=== PATIENT | female | born 1990 | race Caucasian/White ===

== ENCOUNTER 2019-04-28 21:51 | Emergency (ER) | payer OTHER ==
[2019-04-28] MEDS ORDERED: ACETAMINOPHEN 1000 MG/100 ML VIAL (NON FORMULARY) IVPB ONE (22:20)
[2019-04-28] MEDS ORDERED: SODIUM CHLORIDE 0.9% 1000 ML INFUS.BAG IV ONE (22:20)
[2019-04-28] MEDS ORDERED: ONDANSETRON 4 MG/2 ML VIAL IVPUSH ONE (22:20)
[2019-04-28] MEDS ORDERED: ACETAMINOPHEN INJECTION 100 ML IVPB ONE (22:31)
[2019-04-28] MEDS ORDERED: ONDANSETRON 4 MG/2 ML VIAL ONE (22:31)
--- NOTE | 2019-04-28 22:37 | PDOC ---
Documentation entered by Alex Wheeler SCRIBE, acting as scribe for Zainab Munroe DO. Zainab Munroe DO: This documentation has been prepared by the Liam adams Nirvannie, SCRIBE, under my direction and personally reviewed by me in its entirety. I confirm that the documentation accurately reflects all work, treatment, procedures, and medical decision making performed by me. History of Present Illness - General Stated Complaint: RECTAL BLEEDING Time Seen by Provider: 04/28/19 22:02 History Source: Patient, Unavil. due to pt. cond. - History of Present Illness Initial Comments: 04/28/19 23:11 The patient is a 28 year old female, with a significant past medical history of Stage III Ovarian Cancer (06/29, s/p radiation, currently in remission), who presents to the emergency department with 3 days of rectal bleeding. As per patient, she was constipated and noticed rectal bleeding upon straining. She notes going to her PCP for her symptoms at which time she was prescribed Metamucil. She notes today her rectal bleeding increased significantly with associated diarrhea, prompting her arrival to the ED. She denies any vaginal bleeding. She denies recent fevers, chills, headache or dizziness. She denies recent dysuria, frequency, urgency or hematuria. She denies recent chest pain or shortness of breath. Allergies: Tree nuts. Past surgical history: None reported. Social history: Nonsmoker. Denies EtOH use and recreational drug use. Primary Care Physician: Dr. Sultana LMP: 06/2017 Past History - Past Medical History Allergies/Adverse Reactions: Allergies Allergy/AdvReac Type Severity Reaction Status Date / Time tree nut Allergy Intermediate Swelling Verified 08/25/15 08:34 No Known Drug Allergies Allergy Verified 08/25/15 08:34 Home Medications: Ambulatory Orders Acetaminophen [Tylenol .Regular Strength -] 650 mg PO Q4H PRN #0 tablet Ferrous Sulfate [Feosol] 325 mg PO BID #60 tablet 08/29/15 Ibuprofen [Motrin -] 600 mg PO Q4H PRN #30 tablet 08/29/15 Vitamins - 1 tab PO DAILY #30 08/29/15 Ciprofloxacin [Cipro (Restricted To Id)] 500 mg PO BID #14 tablet 04/29/19 metroNIDAZOLE [Flagyl -] 500 mg PO TID #21 tablet 04/29/19 Asthma: No Cancer: No Cardiac Disorders: No Diabetes: No HTN: No Seizures: No Thyroid Disease: No - Psycho Social/Smoking Cessation Hx Smoking History: Never smoked Have you smoked in the past 12 months: No Hx Alcohol Use: No Drug/Substance Use Hx: No Hx Substance Use Treatment: No Review of Systems - Review of Systems Able to Perform ROS?: Yes Comments:: 04/28/19 23:11 GENERAL/CONSTITUTIONAL: No fever or chills. No weakness. HEAD, EYES, EARS, NOSE AND THROAT: No change in vision. No ear pain or discharge. No sore throat. GASTROINTESTINAL: +Rectal bleeding. +Diarrhea. No nausea or vomiting. GENITOURINARY: No dysuria, frequency, or change in urination. CARDIOVASCULAR: No chest pain or shortness of breath. RESPIRATORY: No cough, wheezing, or hemoptysis. MUSCULOSKELETAL: No joint or muscle swelling or pain. No neck or back pain. SKIN: No rash NEUROLOGIC: No headache, vertigo, loss of consciousness, or change in strength/ sensation. ENDOCRINE: No increased thirst. No abnormal weight change. HEMATOLOGIC/LYMPHATIC: No anemia, easy bleeding, or history of blood clots. ALLERGIC/IMMUNOLOGIC: No hives or skin allergy. = All Other Systems: Reviewed and Negative *Physical Exam - Physical Exam 04/28/19 23:12 Constitutional: Awake, alert, oriented. No acute distress. Head: Normocephalic. Atraumatic Eyes: PERRL. EOMI. Conjunctivae are not pale. ENT: Mucous membranes are moist and intact. Posterior pharynx without exudates or erythema. Uvula midline. Neck: Supple. Full ROM. No lymphadenopathy. Cardiovascular: Regular rate. Regular rhythm. S1, S2 regular. Distal pulses are 2+ and symmetric. Pulmonary/Chest: No evidence of respiratory distress. Clear to auscultation bilaterally No wheezing, rales or rhonchi. Abdominal: +LLQ, suprapubic tenderness. Soft and non-distended. No rebound, guarding or rigidity. No organomegaly. No palpable masses. Good bowel sounds. Back: No CVA tenderness. Rectal: +External hemorrhoid. No internal hemorrhoids. No active bleeding. No masses palpated. No fissures. Musculoskeletal: No edema. No cyanosis. No clubbing. Full range of motion in all extremities. No calf tenderness. Radial/pedal pulses are intact and 2+ bilaterally Skin: Skin is warm and dry. No petechiae. No purpura. Neurological: Alert and oriented to person, place, and time. Cranial nerves II -XII are grossly intact. Normal speech. Strength is grossly symmetric. No sensory deficits. Psychiatric: Good eye contact. Normal interaction, affect and behavior. ED Treatment Course - LABORATORY CBC & Chemistry Diagram: 04/28/19 23:00 04/28/19 23:00 - RADIOLOGY Radiograph Interpretation: 04/29/19 01:26 EXAM: ABDOMEN \T\ PELVIS CT WITH CONTR HISTORY: Left lower quadrant pain and rectal bleeding COMPARISON: None. FINDINGS: Lung bases are clear. The visualized cardiac chambers are normal size and configuration. Gallstones are noted without gallbladder inflammation or biliary duct dilation. Normal liver, pancreas, spleen, adrenal glands and kidneys. The stomach and abdominal small and large bowel are normal. There is no aortic aneurysm. There is no significant retroperitoneal lymphadenopathy. The pelvic small and large bowel are notable for moderate rectal inflammation which may be due to infection or inflammatory bowel disease. No bowel obstruction, abscess or free air.. The appendix is normal. Status post hysterectomy. Urinary bladder is mildly inflamed. There is no pelvic free fluid. No discrete pelvic lymphadenopathy is identified. IMPRESSION: Gallstones. Moderate proctitis. Mild cystitis may be secondary to the rectal inflammation. One or more of the following dose reduction techniques were used: automated exposure control, adjustment of the mA and/or kV according to patient size, use of iterative reconstructive technique. Read by: Forest Mckeon MD Medical Decision Making - Medical Decision Making 04/28/19 22:29 a/p: 28yo female with rectal pain and bleeding -states bleeding x 3 days and initially had constipation -seen at [facility] and given metamucil- states since taking metamucil she has had diarrhea, blood in stool/passing clots, abd pain -pt w hx of ovarian ca stage III, hx of hysterectomy, radiation therapy to pelvis, LLQ pain, n/v will send for ct abd/pelvis for eval of colitis, obstruction -no masses palpated on rectal, light brown stool, no active bleeding, no bright red blood, no masses, no fissures 04/28/19 23:18 hgb stable plts stable 04/28/19 23:40 stool for blood neg 04/29/19 00:56 labs reviewed low grade temp- tylenol given pending ct read ua 04/29/19 01:38 pt with proctitis abx ordered 04/29/19 01:38 discussed labs and imaging will send rx for abx to pharmacy pt states she wants to follow with [facility] for dc to home on oral abx Discharge - Discharge Information Problems reviewed: Yes Clinical Impression/Diagnosis: Infective proctitis Condition: Stable Disposition: HOME - Admission No - Additional Discharge Information Prescriptions: Ciprofloxacin [Cipro (Restricted To Id)] 500 mg PO BID #14 tablet metroNIDAZOLE [Flagyl -] 500 mg PO TID #21 tablet - Follow up/Referral Referrals: ON STAFF,NOT [Primary Care Provider] - Ishan Garcia MD [Staff Physician] - - Patient Discharge Instructions Patient Printed Discharge Instructions: DI for Colitis Additional Instructions: Please drink plenty of fluids. Please take all the antibiotics as prescribed. Please call to schedule an appointment with your PMD and also with a scrap breaker. Please return to the ER with any further concerns or complaints. Please take tylenol as needed for the fever. Please return to the ER with any further concerns or complaints. - Post Discharge Activity
[2019-04-28 23:12] VITALS: BP 108/67; TEMP 100.6; BMI 37.6
[2019-04-28 23:15] LABS: BASO % 0.7 % (0-2.0); EOS % 0.8 % (0-4.5); HEMATOCRIT 34.8 % (32.4-45.2); HEMOGLOBIN 11.6 GM/dL (10.7-15.3); LYMPH % 13.3 % (8-40); MCH 27.9 pg (25.7-33.7); MCHC 33.5 g/dl (32.0-36.0); MEAN CELL VOLUME 83.4 fl (80-96); MEAN PLT VOLUME 8.2 fl (7.5-11.1); MONO % 6.8 % (3.8-10.2); NEUT % 78.4 % (42.8-82.8); PLATELET COUNT 199 K/MM3 (134-434); RBC 4.17 M/mm3 (3.60-5.2); RDW 13.2 % (11.6-15.6); WHITE BLOOD COUNT 10.2 K/mm3 (4.0-10.0)
[2019-04-28 23:30] LABS: INR 1.05 (0.83-1.09); PROTHROMBIN TIME (PATIENT) 12.4 SEC (9.7-13.0)
[2019-04-28 23:32] LABS: ACTIVATED PTT 36.2 SECONDS (25.2-36.5)
[2019-04-28 23:38] LABS: ALBUMIN 3.8 g/dl (3.4-5.0); BILIRUBIN,TOTAL 0.4 mg/dL (0.2-1); BLOOD UREA NITROGEN 16.1 mg/dL (7-18); CREATININE 0.9 mg/dL (0.55-1.3); TOT PROT 7.6 g/dl (6.4-8.2)
[2019-04-29] MEDS ORDERED: CIPROFLOXACIN 500 MG TABLET (RESTRICTED TO ID) PO ONE (01:25)
[2019-04-29] MEDS ORDERED: metroNIDAZOLE 250 MG TABLET PO ONE (01:25)
[2019-04-29 02:05] VITALS: PULSE 80
[2019-04-29 02:07] LABS: URINE APPEARANCE CLEAR; URINE BILIRUBIN NEGATIVE (NEGATIVE); URINE COLOR YELLOW; URINE GLUCOSE (UA) NEGATIVE (NEGATIVE); URINE KETONE NEGATIVE (NEGATIVE)
[2019-04-29 02:08] LABS: URINE LEUK ESTERASE NEGATIVE (NEGATIVE); URINE NITRITE NEGATIVE (NEGATIVE); URINE PROTEIN NEGATIVE (NEGATIVE)
== END 2019-04-29 02:08 | disposition home or self-care (01) ==
LOC: JER 21:51
PROC: 3E033NZ Introduction of Analgesics, Hypnotics, Sedatives into Peripheral Vein, Percutaneous Approach (ICD-10-PCS; principal; 2019-04-28)
PROC: 3E033GC Introduction of Other Therapeutic Substance into Peripheral Vein, Percutaneous Approach (ICD-10-PCS; 2019-04-28)
DX: K62.89 Other specified diseases of anus and rectum (principal); Z85.43 Personal history of malignant neoplasm of ovary
CPT/HCPCS: 36415; 74177-TC; 80053; 81003; 82272; 85025; 85610; 85730; 99283-25; J0131; J7030; Q9967